=== PATIENT | male | born 1975 | race African-American/Black ===

== ENCOUNTER 2017-01-30 12:41 | Emergency (ER) | payer MEDICARE ==
[2014-12-18 08:03] VITALS: BMI 35.5
[~2017-01-30 12:41] MED LIST: LITHIUM CARBON300 MG PO; PERCOCET 10/3251 TA1 PO; TRAZODONE HCL150 MG PO; WELLBUTRIN XL150 M1 PO; XANAX2 MG PO
== END 2017-01-30 14:28 | disposition home or self-care (01) ==
LOC: D.ER 12:41
DX: M25.562 Pain in left knee (principal); F17.200 Nicotine dependence, unspecified, uncomplicated

== ENCOUNTER 2019-05-23 12:30 | Emergency (ER) | payer MEDICARE ==
[~2019-05-23] VITALS: Ht 175.3 cm; Wt 105.9 kg
[2019-05-23 12:42] VITALS: Ht 175.3 cm; Wt 105.9 kg
[2019-05-23 14:26] LABS: BASOPHILS 0.2 % (0-2); EOSINOPHILS 3.8 % (0-7); HEMATOCRIT 44.3 % (42.0-54.0); HEMOGLOBIN 15.7 g/dL (13.5-17.5); IMMATURE GRANULOCYTES 0.2 % (0-5); LYMPHOCYTES 23.4 % (15-50); MCH 32.7 pg (26.0-34.0); MCHC 35.4 g/dL (31.0-37.0); MCV 92.3 fL (80.0-100.0); MEAN PLATELET VOLUME 9.3 fL (7.4-10.4); MONOCYTES 9.1 % (2-11); NEUTROPHILS 63.3 % (40-80); PLATELET COUNT 184 10x3/uL (130-400); RDW 14.2 % (11.5-14.5); WBC 8.7 10x3/uL (4.8-10.8)
[2019-05-23 14:40] LABS: AMORPHOUS SEDIMENT >1+ /lpf (NONE SEEN); APPEARANCE HAZY (CLEAR); BACTERIA FEW /hpf (NONE SEEN); BILIRUBIN NEGATIVE (NEGATIVE); COLOR STRAW (YELLOW); GLUCOSE NEGATIVE (NEGATIVE); KETONE NEGATIVE (NEGATIVE); NITRITE NEGATIVE (NEGATIVE); PROTEIN NEGATIVE (NEGATIVE); RED CELLS - URINE 0-5 /hpf (0-5); UROBILINOGEN NORMAL (NORMAL); WHITE CELLS - URINE RARE /hpf (0-5)
[2019-05-23 14:41] LABS: MUCUS <1+ /lpf (NONE SEEN)
[2019-05-23 14:50] LABS: ALKALINE PHOSPHATASE 67 U/L (46-116); ALT (SGPT) 27 U/L (10-68); CALC OSMOLALITY 277 mosm/kg (275-300); CALCIUM 8.6 mg/dL (8.5-10.1); CARBON DIOXIDE 31.1 mmol/L (21.0-32.0); CHLORIDE - SERUM 105 mmol/L (98-107); CREATININE - SERUM 1.4 mg/dL (0.6-1.3); GLUCOSE 91 mg/dL (74-106); POTASSIUM - SERUM 3.7 mmol/L (3.5-5.1); PROTEIN - SERUM 6.8 g/dL (6.4-8.2); SODIUM 140 mmol/L (136-145); UREA NITROGEN 11 mg/dL (7-18); eGFR NON AFRICAN AMERICAN 58 mL/min (90-120)
[2019-05-23 14:54] LABS: LIPASE 223 U/L (73-393)
[2019-05-23 14:55] LABS: C-REACTIVE PROTEIN < 0.2 mg/dL (0.0-0.9); TROPONIN-I < 0.017 ng/mL (0.000-0.060)
[2019-05-23] MEDS ORDERED: DICLOFENAC SODI50 MG PO (16:27)
[2019-05-23 17:05] VITALS: BP 158/97
== END 2019-05-23 17:07 | disposition home or self-care (01) ==
LOC: D.ER 12:30
PROVIDERS: Family Medicine
DX: M54.42 Lumbago with sciatica, left side (principal); F17.210 Nicotine dependence, cigarettes, uncomplicated

== ENCOUNTER 2019-08-10 10:32 | Emergency (ER) | payer MEDICARE ==
[~2019-08-10] VITALS: Ht 175.3 cm; Wt 105.9 kg
[~2019-08-10 10:32] MED LIST changes: +DICLOFENAC SODI50 MG PO
[2019-08-10 10:40] VITALS: Ht 175.3 cm; Wt 105.9 kg
[2019-08-10] MEDS ORDERED: ULTRAM50 MG PO (12:21)
[2019-08-10] MEDS ORDERED: IBUPROFEN800 MG PO (12:21)
[2019-08-10 12:38] VITALS: BP 126/74
== END 2019-08-10 12:38 | disposition home or self-care (01) ==
LOC: D.ER 10:32
DX: S63.501A Unspecified sprain of right wrist, initial encounter (principal); W19.XXXA Unspecified fall, initial encounter

== ENCOUNTER 2019-08-23 22:27 | Emergency (ER) | payer MEDICARE ==
[~2019-08-23] VITALS: Ht 175.3 cm; Wt 106.8 kg
[~2019-08-23 22:27] MED LIST changes: +IBUPROFEN800 MG PO; +ULTRAM50 MG PO
[2019-08-23 22:33] VITALS: Ht 175.3 cm; Wt 106.8 kg
[2019-08-23] MEDS ORDERED: NAPROSYN500 MG PO (22:49)
[2019-08-23 23:18] VITALS: BP 164/114
== END 2019-08-23 23:18 | disposition home or self-care (01) ==
LOC: D.ER 22:27
DX: R60.9 Edema, unspecified (principal); K08.9 Disorder of teeth and supporting structures, unspecified